=== PATIENT | female | born 2005 | race Caucasian/White ===

== ENCOUNTER 2024-07-15 16:16 | Emergency (ER) | payer OTHER, SELFPAY ==
--- OUTSIDE RECORDS SUMMARY | 2024-07-15 16:18 | XMS_ITS | Patient Health Summary ---
Author Organization [facility] Address [address] [place] [address] Care Team Providers Care Installer Inspector Final Name Role Phone Rupa Martin MD Primary Care Provider [phone] Note from [facility],non-owned Affiliates and Associated Physician Practices is amultiple site organization consisting of ambulatory clinics and hospital sitesin [place], [place], [place] and [place]. This disclosure is being madepursuant to the Care Everywhere program and may not contain all information available regarding this patient. Last updated 18.[facility] Allergies * Penicillins Medications * Be aware that medications may not be up to date on this document. Alwaysverify current medications with the patient. * ibuprofen (MOTRIN) 200 MG tablet Take 200 mg by mouth every 6 hours as needed for Pain * Melatonin-Pyridoxine (MELATIN PO) Take 5 mg by mouth Active Problems Problem Noted Date Diagnosed Date Chronic daily headache 07/09/2015 Social History Tobacco Use Types Packs/Day Years Used Date Smoking Tobacco: Never Alcohol Use Standard Drinks/Week Comments Not Asked 0 (1 standard drink = 0.6 oz pur e alcohol) Sex and Gender Information Value Date Recorded Sex Assigned at Not on file Gender Identity Not on file Sexual Orientation Not on file Last Filed Vital Signs Vital Sign Reading Time Taken Comments Blood Pressure 114/76 01/20/2016 2:17 PM CDT Pulse 94 02/07/2015 3:11 PM CDT per p cp Temperature 37 ??C (98.6 ??F) 07/02/2015 3:13 PM 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
--- OUTSIDE RECORDS SUMMARY | 2024-07-15 16:18 | XMS_ITS ---
Author Organization Unknown Plan of Treatment Patient Care team information Name Category Status Period Participants - - Proposed period not known -
--- OUTSIDE RECORDS SUMMARY | 2024-07-15 16:18 | XMS_ITS | Clinical Summary ---
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 Gender Identity Not on file Sexual Orientation Not on file Plan of Treatment Health Maintenance Due Date Last Done Comments Hepatitis C Virus (HCV) Screening 2003 Meningococcal B Immunization (2 of 2 - Bexsero SCDM 2-dose series) 07/06/2020 01/04/2020 Hepatitis B Immunization (1 of 3 - 19+ 3-dose series) 2022 Influenza Immunization (#1) 02/20/202401/2018, 03/25/2017, 04/12/2015, Additional history exists SARS-COV-2 Immunization ( season) 2024 11/04/2020, 10/14/2020 Pap Smear 2024 Respiratory Syncytial Virus (RSV) Immunization (Adult) (1 - 1-dose 75+ series) 2078 Pneumococcal Immunization Combined Completed 06/11/2005, 06/03/2004, 2003, Additional history exists Hepatitis A Immunization Discontinued 05/31/2007, 11/2006 Measles Mumps Rubella (MMR) Immunization Discontinued 11/26/2008, 06/03/2004 Varicella Immunization Discontinued 11/26/2008, 2004 DTaP/Tdap/Td Immunization Discontinued 2014, 08/23/2004, 02/29/2004, Additional history exists TdaP Immunization Completed 02/07/2015 Human Papillomavirus (HPV) Immunization Completed 08/23/2015, 04/12/2015, 02/07/2015 Meningococcal Immunization (ACWY) Completed 01/04/2020, 02/07/2015 Rotavirus Immunization Aged Out No lo nger eligible based on patient's age to complete this topic
--- OUTSIDE RECORDS SUMMARY | 2024-07-15 16:18 | XMS_ITS | Referral Summary ---
Author Organization [facility] Address [address] [place] [address] Care Team Providers Care Claims Sorter Name Role Phone Rupa Martin MD Primary Care Provider [phone] Source Comments [facility],non-owned Affiliates and Associated Physician Practices is amultiple site organization consisting of ambulatory clinics and hospital sitesin [place], [place], [place] and [place]. This disclosure is being madepursuant to the Care Everywhere program and may not contain all information available regarding this patient. Last updated 18.[facility] Allergies Active Allergy Reactions Criticality Noted Date Comments Penicillins 07/15/2015 Medications * Be aware that medications may not be up to date on this document. Alwaysverify current medications with the patient. Medication Sig Dispensed Refills Start Date End Date Status ibuprofen (MOTRIN) 200 MG tablet Take 200 mg by mouth every 6 hours as needed for Pain Active Melatonin-Pyridoxine (MELATIN PO) Take 5 mg by mouth Acti ve Active Problems Problem Noted Date Diagnosed Date Chronic daily headache 07/09/2015 Assessment & Plan (01/20/2016 3:06 PM CDT): Chronic headaches have improved with improvements in sleep. Headaches are not frequent enough at this time to warrant preventative therapy. Continue current care and keep with lifestyle modifications such as eating healthy, regularly, hydration, avoid caffeine and keep up with Sleep hygiene (can take Melatonin as is currently doing). Call if headaches increase or worsen, to consider starting a daily preventative. Assessment & Plan (07/15/2015 10:42 AM PE[employer] HCM CONSULTANT): Chronic daily headaches, mostly tension type, are likely from various lifestyle issues such as poor diet/eating patterns, poor hydration, excess caffeine intake, poor sleep. She is not needing pain medications such as Ibuprofen often enough (>2-3 times/week consistently) to warrant daily preventative medication; moreover, headaches are likely to further space out and improve with lifestyle changes So defer preventative medications at this time. 1. Keep headache diary 2. Maintain active lifestyle 3. Eat healthy diet, and do not skip meals 4. Drink plenty of water, and avoid caffeine regularly. 5. Sleep: 1. Maintain good sleep routine. 2. Avoid distractions at bedtime such as TV, computer. 3. Get at least 8-10 hours of sleep nightly 4. Trial of Melatonin 1-2 mg about 30 minutes prior to bedtime to improve sleep initiation 5. Note track of her sleeping for snoring,restlessness. 6. Do not use pain medication (such as Tylenol, Ibuprofen) more than 2-3 times/week in order to avoid medication overuse headaches 7. Use Ibuprofen as needed only for moderate-severe headaches. 8. Call in 4-6 weeks with update regarding headaches, sooner for concerns. If headaches are frequent (>2-3 times/week) despite addressing above, then can consider starting a daily preventative medication. Social History Tobacco Use Types Packs/Day Years [...] 37 ??C (98.6 ??F) 07/02/2015 3:13 PM PEOPLESOFT HCM CONSULTANT per pcp Respiratory Rate 22 07/02/2015 3:13 PM PEOPLESOFT HCM CONSULTANT p er pcp Oxygen Saturation - - Inhaled Oxygen Concentration - - Weight 80.6 kg (177 lb 11.1 oz) 01/20/2016 2:17 PM CDT Height 154.5 cm (5' 0.83 ) 01/20/2016 2:17 PM CD T Body Mass Index 33.77 01/20/2016 2:17 PM CDT Plan of Treatment Not on file Care Teams Claims Sorter Relationship Specialty Start Date End Date Rupa Martin MD PCP - General Pediatrics 07/03/15
--- OUTSIDE RECORDS SUMMARY | 2024-07-15 16:18 | XMS_ITS | Clinical Summary ---
Author Organization [facility] Address [address] [place] [address] Care Team Providers Care Manager Logistic Name Role Phone Rupa Martin MD Primary Care Provider [phone] Source Comments [facility],non-owned Affiliates and Associated Physician Practices is amultiple site organization consisting of ambulatory clinics and hospital sitesin [place], [place], [place] and [place]. This disclosure is being madepursuant to the Care Everywhere program and may not contain all information available regarding this patient. Last updated 18.[facility] Allergies Active Allergy Reactions Criticality Noted Date [...] preventative. Assessment & Plan (07/15/2015 10:42 AM TANNING SALON ATTENDANT): Chronic daily headaches, mostly tension type, are [...] can consider starting a daily preventative medication. Family History Medical History Relation Name Comments Seizures Other cousin LKS Headaches Neg Hx Migraine Neg Hx Multiple Sclerosis Neg Hx Neurofibromatosis Neg Hx Relation Name Status Comments Other cousin Alive Social History Tobacco Use Types Packs/Day Years [...] 37 ??C (98.6 ??F) 07/02/2015 3:13 PM TANNING SALON ATTENDANT per pcp Respiratory Rate 22 07/02/2015 3:13 PM TANNING SALON ATTENDANT p er pcp Oxygen Saturation - - Inhaled Oxygen Concentration - - Weight 80.6 kg (177 lb 11.1 oz) 01/20/2016 2:17 PM CDT Height 154.5 cm (5' 0.83 ) 01/20/2016 2:17 PM CD T Body Mass Index 33.77 01/20/2016 2:17 PM CDT Plan of Treatment Health Maintenance Due Date Last Done Comments PAP SMEAR 2003 HIV SCREENING 2018 HPV VACCINE (1 - 3-dose series) 2018 CHLAMYDIA/GONORRHEA SCREENING 2019 MENINGOCOCCAL (Group B) VACC INE (1 of 2 - Standard) 2019 HEPATITIS C SCREENING 05/24/2021 DTAP/TDAP/TD VACCINES (1 - Tdap) 2022 HEPATITIS B VACCINE (1 of 3 - 19+ 3-dose series) 2022 COVID-19 VACCINE (1 - 2023-2 5 season) 2024 INFLUENZA VACCINE (#1) 2024 DEPRESSION SCREENING 06/21/2024 ZOSTER VACCINE (1 of 2) 2053 HIB VACCINE Aged Out No longer eligi ble based on patient's age to complete this topic MENINGOCOCCAL VACCINE Aged Out No xenia brenda eligible based on patient's age to complete this topic PNEUMOCOCCAL VACCINE Aged Out No long er eligible based on patient's age to complete this topic Care Teams Manager Logistic Relationship Specialty Start Date End Date Rupa Martin MD PCP - General Pediatrics 07/03/15
[2024-07-15 16:29] VITALS: BP 105/60; PULSE 98; RESP 20; TEMP 36.6; O2SAT 100
[2024-07-15 16:46] LABS: EDSTREPNEGPOS1 Negative (Negative)
[2024-07-15 16:56] LABS: EDCOVIDSCREEN Negative (Negative); EDINFLUASCREEN Positive (Negative); EDINFLUBSCREEN Negative (Negative)
--- NOTE | 2024-07-15 16:58 | ED.URI ---
HPI - URI/Sore Throat General Chief Complaint: Upper Respiratory Infection Stated Complaint: cough and strep symptoms Time Seen by Provider: 07/15/24 16:35 Source: patient Mode of arrival: ambulatory Limitations: no limitations History of Present Illness HPI Narrative: 19-year-old female presents with complaint of cough, nasal congestion, sore throat, chills and body aches for 3 days. Afebrile. Taking jkqf-kwu-lgywejf DayQuil NyQuil cold and flu to treat symptoms. Denies nausea vomiting diarrhea. All systems reviewed and negative except as noted above. Related Data Allergies Allergy/AdvReac Type Severity Reaction Status Date / Time Penicillins Allergy Mild Rash Verified 07/15/24 16:29 Review of Systems Review of Systems: CONSTITUTIONAL: Denies fever, chills, or sweats. EYES: Denies visual changes, redness, or discharge. ENT: reports rhinorrhea, congestion, sore throat. Denies otalgia. CARDIOVASCULAR: Denies chest pain, palpitations, or edema. RESPIRATORY: reports cough . Denies dyspnea. GASTROINTESTINAL: Denies abdominal pain, nausea, vomiting, or diarrhea. GENITOURINARY: Denies dysuria or hematuria. SKIN: Denies rash or itching. MUSCULOSKELETAL: Denies back pain, joint pain . Reports myalgia. NEUROLOGIC: Denies headache, numbness, or weakness. PSYCHIATRIC: Denies anxiety or depression. All other systems reviewed are negative, except as documented in HPI. [facility] Past Medical History Medical History Headache Heavy menses Obese Surgical History Surgical History No history of previous surgery Family History Family History Father Hypertension Social History Social History Social History: 03/07/24 very confident with medical forms Smoking status: Never smoker Alcohol intake: never Substance use: never Do You Feel Safe in your Home?: Yes Lack of Transportation: No Lack of Food: Never True Current Housing: I Have Housing Concerned About Future Housing: No Difficulty Paying Gas/Electric Bills: No Difficulty Paying for Meds: No Currently Unemployed: No Education: Associate Degree Difficulty w/ Childcare or Family Care: No Living arrangements: with family Occupation/Education: occupation Additional occupation/education comments: [employer] at [employer] Spiritual care concerns: No Agree to blood products: Yes Comments At time of signature, agree with nursing past medical, surgical, social and family history. There is no relevant family history pertinent to the presenting complaint. Exam Narrative: GENERAL: This is a well-nourished, well-developed patient, patient ill-appearing but in no acute distress HEAD: normocephalic, atraumatic. EYES: PERRL. Sclera clear/white. Vision is grossly intact. EARS: External ears normal, auditory canals clear and without drainage, TMs normal without perforation. Hearing grossly intact. NOSE: External nose normal with mild congestion with clear nasal drainage THROAT: Mucous membranes moist, mild erythema without swelling or exudates NECK: Neck supple, non-tender without lymphadenopathy, masses or thyromegaly. CARDIOVASCULAR: Regular rate and rhythm without murmurs, gallops, or rubs. RESPIRATORY: Clear to auscultation. Breath sounds equal bilaterally. No wheezes, rales, or rhonchi. SKIN: warm, Dry, intact with no suspicious lesions or rash, good texture and turgor. NEURO: awake, alert, and oriented to person, place and time. There were no obvious focal neurologic abnormalities. EXTREMITIES: No joint tenderness, effusion, or edema noted. Course Course Level of Care: Express Care Visit Vital Signs Vital signs: Vital Signs Temperature 36.6 C 07/15/24 16: Pulse Rate 98 07/15/24 16:29 Respiratory Rate 20 07/15/24 16:29 Blood Pressure 105/60 07/15/24 16:29 Pulse Oximetry 100 07/15/24 16:29 Oxygen Delivery Room Air 07/15/24 16:29 Temperature 36.6 C 07/15/24 16:29 Pulse Rate 98 07/15/24 16:29 Respiratory Rate 20 07/15/24 16:29 Blood Pressure 105/60 07/15/24 16:29 Pulse Oximetry 100 07/15/24 16:29 Oxygen Delivery Room Air 07/15/24 16:29 reviewed MDM - URI/Sore Throat MDM Narrative Medical decision making narrative: positive for influenza A. COVID and strep test negative. Recommend patient take vjoq-zbo-nyqeytk medications to treat viral symptoms. Patient is alert, nontoxic. Patient is aware of diagnosis, understands and agrees to treatment plan. Anticipatory guidance given. Patient agrees to follow-up as directed and is aware of reasons to seek care at the emergency department. Portions of this record may have been created with voice recognition software Differential Diagnosis Differential diagnosis: Likely upper respiratory infection, sinusitis, viral infection, influenza and pharyngitis Lab Data Labs: Lab Results 07/15/24 07/15/24 Range/Units 16:44 16:54 POC Influenza A Ag Positive (Negative) POC Influenza B Ag Negative (Negative) POC SARS CoV-2 Ag Negative (Negative) POC Grp A Strep Screen Negative (Negative) Discharge Plan Discharge Clinical Impression: Influenza A Patient Disposition: Home, Self-Care Condition: Stable Instructions: Influenza (ED) Additional Instructions: your influenza test was positive today. Influenza is a virus and symptoms may last 10-14 days. Continue taking yvkc-yju-ajhpmhe DayQuil NyQuil cold and flu to treat her symptoms. Take ibuprofen every 6-8 hours as needed for pain and fever. Drink at least 64 oz water a day. Follow-up with your primary care physician if symptoms are not improving. Patient Language: Kiswahili Prescriptions: No Action Wegovy 1.7 mg/0.75 mL pen injector 1.7 mg subcut WEEKLY Qty: 9 1RF Follow-up/Referrals: Meghan Vasquez APRN [Primary Care Provider] - Stand Alone Forms: Work/School Release IP Time of Disposition: 16:53
== END 2024-07-15 16:55 | disposition home or self-care (01) ==
PROVIDERS: Emergency Provider Nurse Practitioner Family; PCP Nurse Practitioner Family
DX: J10.1 Influenza due to other identified influenza virus with other respiratory manifestations (principal); Z20.822 Contact with and (suspected) exposure to COVID-19; E66.9 Obesity, unspecified; Z68.42 Body mass index [BMI] 45.0-49.9, adult
CPT/HCPCS: 87081; 87426; 87804; 87880; 99213; G0463

== ENCOUNTER 2025-03-19 09:54 | Outpatient (CLI) | payer OTHER, SELFPAY ==
--- NOTE | ~2025-03-19 | US_ITS ---
ULTRASOUND ABDOMEN LIMITED (RIGHT UPPER QUADRANT) Clinical History: R10.11 - Right upper quadrant pain Comparison: None Technique: Right upper quadrant sonography Findings: Liver: Normal size. Normal echotexture. No intrahepatic biliary ductal dilatation. Common Duct: 5 mm. Gallbladder: No stones. No wall thickening. No pericholecystic fluid. Pancreas: Mostly obscured by bowel gas. Right kidney: Unremarkable. Retrohepatic IVC: Unremarkable. IMPRESSION: 1. No acute findings. Reviewed, dictated and finalized at location R. IMPRESSION: 1. No acute findings.
== END 2025-03-19 09:55 | disposition home or self-care (01) ==
LOC: MICIMG 09:54
PROVIDERS: PCP Nurse Practitioner Family; Visit Provider Nurse Practitioner Family
DX: R10.11 Right upper quadrant pain (principal); R11.2 Nausea with vomiting, unspecified
CPT/HCPCS: 76705